=== PATIENT | female | born 1970 | race Caucasian/White ===

== ENCOUNTER → 2020-05-18 14:09 | Outpatient (BNVA) | payer OTHER, SELFPAY | PROVIDERS: Visit Provider Family Medicine | DX: E03.9 Hypothyroidism, unspecified (principal); R23.8 Other skin changes; Z13.6 Encounter for screening for cardiovascular disorders; G47.00 Insomnia, unspecified; M25.561 Pain in right knee; M79.672 Pain in left foot; L71.9 Rosacea, unspecified | CPT/HCPCS: 80053; 80061; 82306; 84443; 85025 ==

== ENCOUNTER 2020-06-09 09:02 | Outpatient (CLI) | payer OTHER, SELFPAY ==
--- NOTE | 2020-06-09 09:08 | XR_ITS ---
WS: [id number] KNEE RIGHT TECHNIQUE: 3 views of the right knee CLINICAL INFORMATION: right medial knee pain COMPARISON: None. FINDINGS: Soft tissue edema. Small suprapatellar effusion. No acute fractures. Normal patella. XR/XR knee RT 3V* [id number] IMPRESSION: Soft tissue edema with small effusion. No acute fractures.
--- NOTE | 2020-06-09 09:08 | XR_ITS ---
WS: [id number] FOOT LEFT TECHNIQUE: 3 views of the left foot CLINICAL INFORMATION: left foot pain - 4th and 5th digits COMPARISON: None. FINDINGS: No evidence of acute fracture or dislocation. Normal tarsal metatarsal alignment. Normal calcaneus. N ormal visualized talar dome. Tiny plantar calcaneal spur. No visualized fractures. IMPRESSION: No visualized acute fractures.
== END 2020-06-09 09:03 | disposition home or self-care (01) ==
PROVIDERS: PCP Family Medicine; Visit Provider Family Medicine
DX: M79.672 Pain in left foot (principal); M25.561 Pain in right knee; R60.0 Localized edema; M25.461 Effusion, right knee
CPT/HCPCS: 73562; 73630

== ENCOUNTER 2020-07-28 12:40 | Outpatient (RCR) | payer OTHER, SELFPAY | END 2020-08-25 23:59 | disposition home or self-care (01) | LOC: SPT 12:40 | PROVIDERS: PCP Family Medicine; Referring Provider Family Medicine; Visit Provider Family Medicine | DX: M25.561 Pain in right knee (principal) | CPT/HCPCS: 97161 ==

== ENCOUNTER → 2020-08-19 13:03 | Outpatient (BNVA) | payer OTHER, SELFPAY | PROVIDERS: PCP Family Medicine; Visit Provider Family Medicine | DX: E55.9 Vitamin D deficiency, unspecified (principal); Z86.39 Personal history of other endocrine, nutritional and metabolic disease | CPT/HCPCS: 82306 ==

== ENCOUNTER 2020-08-24 09:27 | Outpatient (CLI) | payer OTHER, SELFPAY ==
--- NOTE | 2020-08-24 09:30 | MM_ITS ---
WS: [id number] SCREENING DIGITAL MAMMOGRAM WITH CAD HISTORY: screening mammogram COMPARISON: None available. Bilateral CC and MLO views submitted. Computer aided detection analyzed. Breast composition: There are scattered areas of fibroglandular density. No suspicious masses, microc alcifications or architectural distortion. MM/[place] [id number] IMPRESSION: BI-RADS: 1-Negative FOLLOW UP: 1 Year Follow-up
== END 2020-08-24 09:28 | disposition home or self-care (01) ==
LOC: RADSHAW 09:30
PROVIDERS: PCP Family Medicine; Visit Provider Family Medicine
DX: Z12.31 Encounter for screening mammogram for malignant neoplasm of breast (principal)
CPT/HCPCS: 77067

== ENCOUNTER → 2021-02-15 13:55 | Outpatient (BNVA) | payer OTHER, MEDICAID, SELFPAY | PROVIDERS: PCP Family Medicine; Visit Provider Family Medicine | DX: E03.9 Hypothyroidism, unspecified (principal); M25.561 Pain in right knee; Z86.39 Personal history of other endocrine, nutritional and metabolic disease | CPT/HCPCS: 80048; 82306; 84443 ==

== ENCOUNTER → 2021-03-01 09:40 | Outpatient (BNVA) | payer OTHER, MEDICAID, SELFPAY | PROVIDERS: PCP Family Medicine; Visit Provider Nurse Practitioner Family | DX: Z20.822 Contact with and (suspected) exposure to COVID-19 (principal) | CPT/HCPCS: 87635 ==

== ENCOUNTER 2021-06-15 06:59 | Day surgery (SDC) | payer MEDICAID, SELFPAY ==
[2021-06-13 14:08] VITALS: BMI 46.7
--- NOTE | 2021-06-15 07:53 | W.PM.OPSFHP ---
Same Day Surgery H&P Indication for Procedure/HPI DATE OF PROCEDURE: June 15, 2021 CHIEF COMPLAINT/INDICATIONFOR SURGICAL PROCEDURE: screening PREOP DIAGNOSIS: diagnostic PLANNED PROCEDURE: Operation Date: 06/15/21 08:30 Proposed Procedures p Colonoscopy 72355/k63.5(Not Applicable) - Jordon Mayberry MD Medications/Allergies* Home Medications Medication Instructions Recorded Confirmed Type cetirizine 10 mg tablet (Aller-Andre) 10 mg PO DAILY 05/18/20 06/15/21 History fish oil with evening primrose 2 cap PO DAILY 05/18/20 06/15/21 History loratadine 10 mg tablet (Wal-itin) 10 mg PO DAILY 05/18/20 06/15/21 History mupirocin 2 % topical ointment 1 applic TOPICAL BID PRN 06/13/21 06/15/21 History Allergies/Adverse Reactions Allergy/AdvReac Type Severity Reaction Status Date / Time adhesive tape Allergy ALGY-Rash Verified 06/15/21 07:37 Pertinent History/Comorbid Conditions* Medical History (Updated 04/29/21 @ 11:13 by Jordon Mayberry MD) Colon polyps Hypothyroid Insomnia Migraine headache Urinary incontinence Surgical History (Updated 04/29/21 @ 11:13 by Jordon Mayberry MD) H/O section H/O: hysterectomy History of cholecystectomy History of colonoscopy History of D&C Family History (Updated 05/18/20 @ 13:31 by Bernadette Andrade LPN) Substance abuse Diabetes Psychiatric illness Cancer Stroke Social History Smoking and tobacco status: former smoker Alcohol intake: current Alcohol intake frequency: holidays/special occasions only Pertinent Exam Findings alert, oriented x 3 and regular rate & rhythm Recommendations Surgery/Procedure today Coding Level of Care Code Acute Senior Software Qa Analyst for Nicole Maldonado
[2021-06-15 08:04] VITALS: BP 128/99; PULSE 102; RESP 18; TEMP 36.1; O2SAT 97
--- NOTE | 2021-06-15 08:08 | ANES.PREANE2 ---
Pre-Anesthetic Assessment Height/Weight: Height 1.65 m Weight 127.459 kg Preop Diagnosis: diagnostic Operation Date: 06/15/21 08:30 Proposed Procedures p Colonoscopy 62777/k63.5(Not Applicable) - Jordon Mayberry MD Was Beta Lornea taken within 24 hours: N/A Was Clonidine taken within 24 hours: N/A Social Alcohol and No tobacco Exam alert, oriented x 3, clear to auscultation bilaterally and regular rate & rhythm Airway Submandibular: within normal limits Cervical ROM: within normal limits Mallampati: Class II Dentition: full History/ROS No significant history except as noted and No significant complaints Pulmonary None reported CV/HEM None reported None reported Hepatic None reported GI None reported Metabolic Morbid Obesity [facility] [place], [place] None reported Neuropsych None reported Anesthetic Plan ASA status: 2 Anesthesia: Anesthesia Evaluation and MAC Risk of > 500 ml blood loss (7ml/kg in children): No Medications/Allergies Home Medications Medication Instructions Recorded Confirmed Last Taken Type cetirizine 10 mg tablet (Aller-Andre) 10 mg PO DAILY 05/18/20 06/15/21 06/14/21 History fish oil with evening primrose 2 cap PO DAILY 05/18/20 06/15/21 06/14/21 History loratadine 10 mg tablet (Wal-itin) 10 mg PO DAILY 05/18/20 06/15/21 06/14/21 History meloxicam 15 mg tablet (Mobic) 15 mg PO DAILY #90 tab 02/15/21 06/15/21 06/14/21 Rx solifenacin 10 mg tablet (Vesicare) 10 mg PO DAILY #90 tab 02/15/21 06/15/21 06/14/21 Rx levothyroxine 25 mcg tablet 25 mcg PO DAILY 90 Days #90 tab 04/07/21 06/15/21 06/15/21 Rx topiramate 100 mg tablet 100 mg PO BID 90 Days #180 tab 04/07/21 06/15/21 06/15/21 Rx cholecalciferol (vitamin D3) 125 125 mcg PO DAILY 90 Days #90 cap 05/09/21 06/15/21 06/14/21 Rx mcg (5,000 unit) capsule mupirocin 2 % topical ointment 1 applic TOPICAL BID PRN 06/13/21 06/15/21 06/14/21 History Allergies Allergy/AdvReac Type Severity Reaction Status Date / Time adhesive tape Allergy ALGY-Rash Verified 06/15/21 07:37 [facility] Anesthesia Medical History Colon polyps Hypothyroid Insomnia Migraine headache Urinary incontinence Surgical History H/O section H/O: hysterectomy History of cholecystectomy History of colonoscopy History of D&C Family History Other Cancer Diabetes Psychiatric illness Stroke Substance abuse Social History Smoking and tobacco status: former smoker Alcohol intake: current Alcohol intake frequency: holidays/special occasions only Data Anesthesia Cardiac Studies: No Data to Display
[2021-06-15] MEDS: sodium chloride 0.9% 1,000 ML 30 ML IV (08:10)
[2021-06-15 09:03] VITALS: BP 125/92; PULSE 83; RESP 16; TEMP 36.1; O2SAT 96
[2021-06-15 09:25] VITALS: BP 131/83; PULSE 78; RESP 16; O2SAT 99
--- NOTE | 2021-06-15 17:38 | ANE.PACU2 ---
Inpatient post-anesthesia follow up: Airway intact: Yes Vital signs: Temperature 97 F Pulse Rate 78 Respiratory Rate 16 Blood Pressure 131/83 Pulse Oximetry 99 Oxygen Delivery Me thod Room Air Oxygen Flow Rate Fraction of Inspir ed Oxygen Hydration adequate: Yes Nausea and vomiting: No Pain level: 1 Mental status: Baseline
== END 2021-06-15 09:40 | disposition home or self-care (01) ==
PROVIDERS: PCP Family Medicine; Visit Provider Surgery
PROC: 0DJD8ZZ Inspection of Lower Intestinal Tract, Via Natural or Artificial Opening Endoscopic (ICD-10-PCS; CPT 45378; principal; 2021-06-15 08:30)
DX: Z12.11 Encounter for screening for malignant neoplasm of colon (principal); Z86.010 Personal history of colon polyps; E03.9 Hypothyroidism, unspecified; Z87.891 Personal history of nicotine dependence; E66.01 Morbid (severe) obesity due to excess calories; Z68.42 Body mass index [BMI] 45.0-49.9, adult
CPT/HCPCS: 45378; J2370; J2704; J7030

== ENCOUNTER → 2021-08-31 14:02 | Outpatient (BNVA) | payer MEDICAID, SELFPAY | PROVIDERS: PCP Family Medicine; Visit Provider Family Medicine | DX: R53.83 Other fatigue (principal); E03.9 Hypothyroidism, unspecified | CPT/HCPCS: 80053; 84443; 85025 ==

== ENCOUNTER 2021-11-25 10:19 | Outpatient (CLI) | payer MEDICAID, SELFPAY ==
--- NOTE | 2021-11-25 10:34 | MM_ITS ---
WS: [email or web address] VIEWS: MLO and CC views both breasts. 3D digital tomosynthesis is also included in this exam. Comparison made with prior exam of 07/12/2015, 07/31/2016, 09/03/2017, 08/24/2020.. Findings: Questionable partially obscured 1 cm density noted in the central right breast on the MLO view only. No suspicious calcification. There are no new findings in the left breast. Scattered fibroglandular densities. Compression spot views and ultrasound recommended for further evaluation of the right [address]. Also a 90 degree lateral view of the right breast would be recommended. MM/[place] [id number] Impression: BI-RADS: 0-Incomplete: Need additional imaging evaluation FOLLOW-UP: See Report This mammogram was also analyzed by the Computer Aided Detection System R2 Imag e Attending Urologist.
== END 2021-11-25 10:20 | disposition home or self-care (01) ==
LOC: RAD 10:20
PROVIDERS: PCP Family Medicine; Visit Provider Family Medicine
DX: Z12.31 Encounter for screening mammogram for malignant neoplasm of breast (principal)
CPT/HCPCS: 77063; 77067

== ENCOUNTER 2021-12-14 10:24 | Outpatient (CLI) | payer MEDICAID, SELFPAY ==
--- NOTE | 2021-12-14 10:41 | MM_ITS ---
WS: [email or web address] Left breast diagnostic 3D tomosynthesis digital mammogram, 12/14/2021 Clinical Data: MASS Comparison: 11/25/2021, 08/24/2020 09/03/2017, 07/31/2016, 07/12/2015. Findings: The questionable density in the lower part of the left breast was not seen on the compression MLO vie w or the ML view. There are no spiculated masses or clustered calcifications. MM/[place] [id number] Impression: 1. Negative additional views of left breast. 2. Recommend return to annual screening mammograms. BIRADS: 1-Negative FOLLOW UP: 1 Year Follow-up The CAD liner checker was used.
== END 2021-12-14 10:25 | disposition home or self-care (01) ==
LOC: RAD 10:25
PROVIDERS: PCP Family Medicine; Visit Provider Family Medicine
DX: N63.10 Unspecified lump in the right breast, unspecified quadrant (principal)
CPT/HCPCS: 77061

== ENCOUNTER 2021-12-16 13:33 | Outpatient (CLI) | payer MEDICAID, SELFPAY ==
--- NOTE | 2021-12-16 13:42 | XR_ITS ---
WS: [email or web address] Chest 2 views, 12/16/2021 Clinical Data: chronic cough Comparison: None. Findings: No nodules, masses or effusions are seen. The heart is normal. The pulmonary vascularity is not increased. No pneumonia or pneumothorax is seen. XR/XR chest 2V* [id number] Impression: Negative chest.
== END 2021-12-16 13:34 | disposition home or self-care (01) ==
LOC: RAD 13:36
PROVIDERS: PCP Family Medicine; Visit Provider Family Medicine
DX: R05.3 Chronic cough (principal)
CPT/HCPCS: 71046

== ENCOUNTER → 2022-04-21 11:01 | Outpatient (BNVA) | payer MEDICAID, SELFPAY | PROVIDERS: PCP Family Medicine; Visit Provider Family Medicine | DX: R19.7 Diarrhea, unspecified (principal) | CPT/HCPCS: 86003 ==

== ENCOUNTER 2022-05-01 12:12 | Outpatient (CLI) | payer MEDICAID, SELFPAY ==
--- NOTE | 2022-05-01 12:24 | XRR_ITS ---
PROCEDURE INFORMATION: Exam: XR Left Elbow Exam date and time: 05/01/2022 12:24 PM Age: 52 years old Clinical indication: Patient HX: Left elbow pain. Blood was drawn out of left hand a few months ago and PT states that she believes the hydrographer hit a nerve because it shot pain up her arm and she still has the pain in her elbow today TECHNIQUE: Imaging protocol: Radiologic exam of the left elbow. Views: 1 or 2 views. COMPARISON: No relevant prior studies available. FINDINGS: Bones/joints: Normal alignment. Joint surfaces preserved. No fracture. Soft tissues: No soft tissue swelling or joint effusion evident. XR/XR elbow LT 2V [id number] IMPRESSION: Normal examination of the left elbow.
== END 2022-05-01 12:13 | disposition home or self-care (01) ==
LOC: RAD 12:15
PROVIDERS: PCP Family Medicine; Visit Provider Family Medicine
DX: M25.522 Pain in left elbow (principal)
CPT/HCPCS: 73070

== ENCOUNTER → 2022-11-17 11:30 | Outpatient (BNVA) | payer MEDICAID, SELFPAY | PROVIDERS: PCP Family Medicine; Visit Provider Family Medicine | DX: R30.0 Dysuria (principal); R10.13 Epigastric pain; F33.1 Major depressive disorder, recurrent, moderate; E03.9 Hypothyroidism, unspecified; Z13.6 Encounter for screening for cardiovascular disorders | CPT/HCPCS: 80053; 80061; 81000; 82607; 84443; 85025; 87086 ==

== ENCOUNTER 2022-12-18 10:23 | Outpatient (CLI) | payer MEDICAID, SELFPAY ==
--- NOTE | 2022-12-18 11:18 | MM_ITS ---
WS: [email or web address] VIEWS: MLO and CC views both breasts. 3D digital tomosynthesis is also included in this exam. Comparison made with prior exam of 07/12/2015, 07/31/2016, 09/03/2017, 08/24/2020, 12/14/2021.. Findings: There was no sign of mass, architectural distortion or suspicious calcification in either breast. Sta ble appearing parenchymal densities in both breasts. Scattered areas of fibroglandular density. Impression: MM/[place] [id number] BI-RADS: 2-Benign finding FOLLOW-UP: 1 Year Follow-up This mammogram was also analyzed by the Computer Aided Detection System R2 Imag e Pilot Plant Operator.
== END 2022-12-18 10:24 | disposition home or self-care (01) ==
LOC: RAD 10:24
PROVIDERS: PCP Family Medicine; Visit Provider Family Medicine
DX: Z12.31 Encounter for screening mammogram for malignant neoplasm of breast (principal)
CPT/HCPCS: 77063; 77067

== ENCOUNTER → 2023-06-25 16:35 | Outpatient (BNVA) | payer MEDICAID, SELFPAY | PROVIDERS: PCP Family Medicine; Visit Provider Family Medicine | DX: E78.5 Hyperlipidemia, unspecified (principal); E03.9 Hypothyroidism, unspecified; F33.1 Major depressive disorder, recurrent, moderate; M25.561 Pain in right knee; N39.46 Mixed incontinence; G43.001 Migraine without aura, not intractable, with status migrainosus | CPT/HCPCS: 80053; 80061; 84443; 86376; 86800 ==

== ENCOUNTER 2023-07-03 06:47 | Outpatient (CLI) | payer MEDICAID, SELFPAY ==
--- NOTE | 2023-07-03 06:45 | US_ITS ---
WS: [id number] THYROID ULTRASOUND HISTORY: thyromegaly COMPARISON: None available. Right lobe: 1.3 cm x 1.5 cm x 3.2 cm (w x ap x l). Volume: 3.1 cm3. Normal size thyroid lobe. Hypoechoic nodule in the mid to superior gland measures 0.7 x 0.5 x 0.7 cm. Left lobe: 1.5 cm x 1.2 cm x 3.5 cm (w x ap x l). Volume: 2.9 cm3. Normal size and echotexture. No significant or dominant nodules are present. Isthmus: 0.3 cm. US/US thyroid [id number] IMPRESSION: Based on the TI-RADS criteria no additional imaging necessary.
== END 2023-07-03 06:48 | disposition home or self-care (01) ==
LOC: RAD 06:47
PROVIDERS: PCP Family Medicine; Visit Provider Family Medicine
DX: E03.9 Hypothyroidism, unspecified (principal)
CPT/HCPCS: 76536

== ENCOUNTER 2023-10-30 20:00 | Outpatient (CLI) | payer MEDICAID, SELFPAY | END 2023-10-30 20:01 | disposition home or self-care (01) | LOC: SLEEP 23:32 | PROVIDERS: PCP Family Medicine Adult Medicine; Visit Provider Family Medicine | DX: G47.33 Obstructive sleep apnea (adult) (pediatric) (principal); G47.36 Sleep related hypoventilation in conditions classified elsewhere; E78.5 Hyperlipidemia, unspecified; E03.9 Hypothyroidism, unspecified; G47.10 Hypersomnia, unspecified | CPT/HCPCS: 80053; 80061; 84443; 95810 ==

== ENCOUNTER → 2023-11-20 11:07 | Outpatient (BNVA) | payer MEDICAID, SELFPAY | PROVIDERS: PCP Family Medicine Adult Medicine | DX: Z97.8 Presence of other specified devices (principal); M47.9 Spondylosis, unspecified; R05.9 Cough, unspecified | CPT/HCPCS: 71046 ==

== ENCOUNTER 2023-12-31 09:30 | Outpatient (CLI) | payer MEDICAID, SELFPAY ==
--- NOTE | 2023-12-31 09:30 | MR_ITS ---
WS: [id number] MRI BRAIN WITHOUT CONTRAST HISTORY: G43.001 - Migraine without aura, not intractable, dizziness COMPARISON: None available. TECHNIQUE: Diffusion imaging, multiplanar T1, T2 and FLAIR imaging obtained. No evidence for acute infarct or hemorrhage. Yo-white matter differentiation is normal. Minimal volume loss in the frontal lobes. No prior infarct. Hippocampal formations are normal. Ventricles and extra-axial spaces are normal. No intra displacement the cerebellar tonsils. Empty sella turcica. Dural venous sinuses and [place] demonstrate no abnormality on this unenhanced studies. Paranasal sinuses: Clear. Mastoid air cells: Normal. Calvarium and scalp: Intact. MR/MR head wo con* [id number] IMPRESSION: 1. No acute infarct or hemorrhage. 2. Very minimal bifrontal lobe atrophy. 3. Normal hippocampal formations. 4. No prior infarct.
== END 2023-12-31 09:33 | disposition home or self-care (01) ==
PROVIDERS: Visit Provider Specialist
DX: G43.001 Migraine without aura, not intractable, with status migrainosus (principal); G37.9 Demyelinating disease of central nervous system, unspecified; G47.10 Hypersomnia, unspecified
CPT/HCPCS: 70551

== ENCOUNTER 2024-01-04 11:11 | Outpatient (CLI) | payer MEDICAID, SELFPAY ==
--- NOTE | 2024-01-04 11:13 | MM_ITS ---
WS: [id number] SCREENING DIGITAL BREAST TOMOSYNTHESIS MAMMOGRAM WITH CAD HISTORY: SCREENING COMPARISON: 12/18/2022 Bilateral CC and MLO with tomosynthesis and synthetic mammography submitted. Computer aided detection analyzed. Breast composition: There are scattered areas of fibroglandular density. New amorphous calcifications are noted in the upper outer quadrant of the LEFT breast. These are linear grouped calcifications an d may extend along a ductal distribution. These calcifications were not present on 12/18/2022. RIGHT breast is negative. MM/MM scr BI tomosynthesis [id number] IMPRESSION: BI-RADS: 0 - Incomplete: Need additional imaging evaluation. FOLLOW UP: Need Additional Imaging LEFT BREAST: Magnification views of suspicious calcification CC and MLO. Piotr Walker
== END 2024-01-04 11:12 | disposition home or self-care (01) ==
LOC: RAD 11:11
DX: Z12.31 Encounter for screening mammogram for malignant neoplasm of breast (principal)
CPT/HCPCS: 77063; 77067

== ENCOUNTER → 2024-04-10 11:17 | Outpatient (BNVA) | payer OTHER, SELFPAY | DX: E03.9 Hypothyroidism, unspecified (principal); E78.5 Hyperlipidemia, unspecified | CPT/HCPCS: 80053; 80061; 84439; 84443 ==

== ENCOUNTER 2024-04-22 08:11 | Outpatient (CLI) | payer OTHER, SELFPAY ==
--- NOTE | 2024-04-22 08:15 | US_ITS ---
WS: [id number] ADDITIONAL VIEWS LEFT MAMMOGRAM WITH DIGITAL BREAST TOMOSYNTHESIS. LEFT breast ultrasound, limited HISTORY: abnormal mammogram of left breast COMPARISON: 01/04/2024, 12/18/2022 Magnification views LEFT breast in CC, MLO projections and true ML submitted with digital breast tomosynthesis and SM. Breast composition: There are scattered areas of fibroglandular density. Extensive calcifications noted in the LEFT upper outer quadrant centered at a middle depth but extending anteriorly and posteriorly. Calcification are fine and pleomorphic and also linear and branching. Calcifications are in a linear distribution which may be ductal etiology. There is also slight increased soft tissue component associated with the calcifications. Ultrasound will be obtained also. LEFT breast ultrasound, limited. Ultrasound is performed along the upper outer quadrant of the LEFT breast. There is an area of shadowing. This does correspond to the mammographic abnormality. Not sufficient abnormality noted by ultrasound to perform the biopsy. US/US breast LT limited* [id number] IMPRESSION: BI-RADS: 5 - Highly suggestive of Malignancy. FOLLOW UP: Biopsy Recommended Stereotactic biopsy recommended LEFT breast calcifications upper outer quadrant . Notified Allyssa Sanabria NP at 04/22/2024 10:00 AM. Unable to speak directly wale Sanabria. Recorded message with the answering service. Stressed the imp ortance of providing Allyssa Sanabria with this information.
--- NOTE | 2024-04-22 10:00 | MM_ITS ---
WS: [email or web address] ADDITIONAL VIEWS LEFT MAMMOGRAM WITH DIGITAL BREAST TOMOSYNTHESIS. LEFT breast ultrasound, limited HISTORY: abnormal mammogram of left breast COMPARISON: 01/04/2024, 12/18/2022 Magnification views LEFT breast in CC, MLO projections and true ML submitted with digital breast tomosynthesis and SM. Breast composition: There are scattered areas of fibroglandular density. Extensive calcifications noted in the LEFT upper outer quadrant centered at a middle depth but extending anteriorly and posteriorly. Calcification are fine and pleomorphic and also linear and branching. Calcifications are in a linear distribution which may be ductal etiology. There is also slight increased soft tissue component associated with the calcifications. Ultrasound will be obtained also. LEFT breast ultrasound, limited. Ultrasound is performed along the upper outer quadrant of the LEFT breast. There is an area of shadowing. This does correspond to the mammographic abnormality. Not sufficient abnormality noted by ultrasound to perform the biopsy. MM/MM diag BI tomosynthesis [id number] IMPRESSION: BI-RADS: 5 - Highly suggestive of Malignancy. FOLLOW UP: Biopsy Recommended Stereotactic biopsy recommended LEFT breast calcifications upper outer quadrant . Notified Allyssa Sanabria NP at 04/22/2024 10:00 AM. Unable to speak directly wale Sanabria. Recorded message with the answering service. Stressed the imp ortance of providing Allyssa Sanabria with this information.
== END 2024-04-22 08:12 | disposition home or self-care (01) ==
DX: R92.8 Other abnormal and inconclusive findings on diagnostic imaging of breast (principal); R92.322 Mammographic fibroglandular density, left breast; R92.1 Mammographic calcification found on diagnostic imaging of breast; N63.21 Unspecified lump in the left breast, upper outer quadrant
CPT/HCPCS: 76642; 77062; G0279

== ENCOUNTER 2024-04-30 10:42 | Outpatient (CLI) | payer OTHER, MEDICAID, SELFPAY ==
--- NOTE | 2024-04-30 11:26 | MM_ITS ---
WS: [email or web address] ULTRASOUND-GUIDED LEFT BREAST BIOPSY CLINICAL INFORMATION: breast mass FINDINGS: The procedure including risks, benefits, and complications were discussed with the patient who agreed to proceed. Using sterile technique patient was prepped and draped in the usual sterile fashion. After 1% lidocaine utilizing real-time ultrasound guidance 4 14-gauge cores were obtained of the LEFT breast lesion at the 3 o'clock position. Subsequently a titanium clip was placed in the biopsy cavity. Patient with venous bleeding and subcutaneous breast hematoma post procedure Pathology demonstrates invasive mammary carcinoma with ductal and lobular features nuclear grade 2. Microcalcifications visualized. MM/[place] [id number] IMPRESSION: 1. Ultrasound-guided LEFT breast biopsy. 2. The pathology demonstrates invasive mammary carcinoma with ductal and lobul ar features nuclear grade 2. Microcalcifications visualized. 3. Breast cancer prognostic profile pending. 4. Postbiopsy mammogram images demonstrate biopsy clip in the area of previous ly described calcifications. Significant regional calcifications in this area. Recommend mammographic correlation with breast surgery DENSITY: There are scattered areas of fibroglandular density. BI-RADS: 6 - Known Biopsy - Proven Malignancy. FOLLOW UP: Surgical Biopsy Recommended Recommend breast surgery consultation
--- NOTE | 2024-04-30 11:45 | US_ITS ---
WS: [id number] ULTRASOUND-GUIDED LEFT BREAST BIOPSY CLINICAL INFORMATION: breast mass FINDINGS: The procedure including risks, benefits, and complications were discussed with the patient who agreed to proceed. Using sterile technique patient was prepped and draped in the usual sterile fashion. After 1% lidocaine utilizing real-time ultrasound guidance 4 14-gauge cores were obtained of the LEFT breast lesion at the 3 o'clock position. Subsequently a titanium clip was placed in the biopsy cavity. Patient with venous bleeding and subcutaneous breast hematoma post procedure Pathology demonstrates invasive mammary carcinoma with ductal and lobular features nuclear grade 2. Microcalcifications visualized. US/[place] [id number] IMPRESSION: 1. Ultrasound-guided LEFT breast biopsy. 2. The pathology demonstrates invasive mammary carcinoma with ductal and lobul ar features nuclear grade 2. Microcalcifications visualized. 3. Breast cancer prognostic profile pending. 4. Postbiopsy mammogram images demonstrate biopsy clip in the area of previous ly described calcifications. Significant regional calcifications in this area. Recommend mammographic correlation with breast surgery DENSITY: There are scattered areas of fibroglandular density. BI-RADS: 6 - Known Biopsy - Proven Malignancy. FOLLOW UP: Surgical Biopsy Recommended Recommend breast surgery consultation
[2024-05-06 09:38] LABS: Breast Profile ER,PR,HER2,Ki-6 See Report
== END 2024-04-30 10:43 | disposition home or self-care (01) ==
PROVIDERS: Visit Provider Family Medicine
DX: C50.812 Malignant neoplasm of overlapping sites of left female breast (principal); R92.1 Mammographic calcification found on diagnostic imaging of breast; R92.322 Mammographic fibroglandular density, left breast
CPT/HCPCS: 19083; 77065; 88305; 88361; 88374

== ENCOUNTER 2024-05-20 09:09 | Outpatient (CLI) | payer OTHER, SELFPAY | END 2024-05-20 09:10 | disposition home or self-care (01) | PROVIDERS: Visit Provider Family Medicine | DX: R05.3 Chronic cough (principal) | CPT/HCPCS: 94010; 94726; 94729 ==

== ENCOUNTER 2024-05-22 13:59 | Oncology outpatient (recurring) (ONCR) | payer OTHER, SELFPAY ==
[2024-05-08 09:42] LABS: Basophils # 0.1 10^3/uL (0.0-0.1); Basophils % 0.9 %; Eosinophils # 0.1 10^3/uL (0.0-0.8); Eosinophils % 1.9 %; Hematocrit 40.7 % (36-47); Lymphocytes # 1.7 10^3/uL (0.8-4.8); Lymphocytes % 24.5 %; Mean Corpuscular HGB Conc 32.9 g/dL (30-55); Mean Corpuscular Hemoglobin 34.1 pg (27-33); Mean Corpuscular Volume 103.6 fl (85-98); Mean Platelet Volume 8.7 fL (7.4-10.4); Monocytes # 0.3 10^3/uL (0.2-0.9); Monocytes % 4.7 %; Neutrophils # 4.71 10^3/uL (1.8-7.7); Neutrophils % 67.7 %; Nucleated Red Blood Cells % 0 %; Platelet Count 254 10^3/cmm (157-399); Red Blood Count 3.93 10^6/uL (3.85-5.65); Red Cell Distribution Width 15.1 % (12.1-15.1); White Blood Count 6.95 10^3/uL (3.29-11.43)
[2024-05-08 09:52] LABS: INR 0.88 (0.8-1.2)
[2024-05-08 09:53] LABS: Partial Thromboplastin Time 27.2 SECONDS (23.9-36.7)
[2024-05-08 10:12] LABS: Erythrocyte Sedimentation Rate 3 mm/hr (0-15)
[2024-05-08 10:18] LABS: Alanine Aminotransferase 11 U/L (0-33); Albumin Level 4.4 g/dL (3.5-5.2); Alkaline Phosphatase 97 U/L (35-105); Anion Gap 10.9 (5-19); Aspartate Amino Transferase 17 U/L (0-32); Blood Urea Nitrogen 12 mg/dL (6-20); CA 15-3 13.8 U/mL (0-25); Calcium 9.6 mg/dL (8.5-10.5); Carbon Dioxide 26 mmol/L (22-29); Chloride 102 mmol/L (98-107); Estradiol 5.1 pg/mL; Ferritin 167 ng/mL (15-150); Follicle Stimulating Hormone 68.8 mIU/mL; Globulin 2.7 g/dL (1.3-4.6); Glomerular Filtration Rate 65.5 mL/min (90-130); Glucose 102 mg/dL (65-115); Iron 62 ug/dL (37-145); Lactate Dehydrogenase 169 U/L (135-214); Luteinizing Hormone 36.2 mIU/mL (0.5-41.7); Osmolality Calculated 280 mOsm/kg (285-295); Percent Saturation 20.1 % (20-50); Potassium 3.9 mmol/L (3.5-5.1); Sodium 135 mmol/L (136-145); Total Bilirubin 0.6 mg/dL (0.15-1.2); Total Iron Binding Capacity 308 mcg/dl; Total Protein 7.1 g/dL (6.6-8.7); Unsaturated Iron Binding 246 ug/dL (112-347); Vitamin B12 208 pg/mL (232-1245)
[2024-05-08 10:24] LABS: Folate Level 5.2 ng/mL (4.8-37.3)
[2024-05-12 16:00] LABS: Erythropoietin 27.4 mIU/mL (2.6-18.5)
[2024-05-22 15:34] LABS: Basophils # 0.1 10^3/uL (0.0-0.1); Basophils % 0.8 %; Eosinophils # 0.2 10^3/uL (0.0-0.8); Eosinophils % 2.3 %; Hematocrit 40.7 % (36-47); Lymphocytes # 2.1 10^3/uL (0.8-4.8); Lymphocytes % 28.4 %; Mean Corpuscular HGB Conc 32.4 g/dL (30-55); Mean Corpuscular Hemoglobin 33.4 pg (27-33); Monocytes # 0.3 10^3/uL (0.2-0.9); Monocytes % 4.5 %; Neutrophils # 4.73 10^3/uL (1.8-7.7); Neutrophils % 63.9 %; Nucleated Red Blood Cells % 0 %; Platelet Count 252 10^3/cmm (157-399); Red Blood Count 3.95 10^6/uL (3.85-5.65); Red Cell Distribution Width 14.1 % (12.1-15.1)
[2024-05-22 15:52] LABS: Lactate Dehydrogenase 154 U/L (135-214)
[2024-05-22 16:04] LABS: Homocysteine 53.84 umol/l (0-15)
[2024-05-22 16:08] LABS: Vitamin B12 199 pg/mL (232-1245)
[2024-05-27 16:04] LABS: Methylmalonic Acid 415 nmol/L (55-335)
== END 2024-05-26 23:59 | disposition home or self-care (01) ==
PROVIDERS: Visit Provider Internal Medicine
DX: C50.412 Malignant neoplasm of upper-outer quadrant of left female breast (principal); Z17.0 Estrogen receptor positive status [ER+]; D64.9 Anemia, unspecified
CPT/HCPCS: 36415; 80053; 82607; 82668; 82670; 82728; 82746; 83001; 83002; 83010; 83090; 83540; 83550; 83615; 83921; 85025; 85045; 85610; 85651; 85730; 86300

== ENCOUNTER 2024-06-05 13:15 | Oncology outpatient (recurring) (ONCR) | payer OTHER, SELFPAY ==
--- NOTE | 2024-05-27 10:00 | USCV_ITS ---
Dian Leida Age: 54 Gender: F : 1970 Exam Date: 05/27/2024 10:11 Ordering Phys: Terence Horner MD Technologist: Exam Location: [facility] – [place] Indication: high risk meds BP: 120 / 75 HR: 90 Rhythm: Sinus Technical Quality: Suboptimal MEASUREMENTS (Male / Female) Normal Values 2D ECHO LV Diastolic Diameter PLAX 3.8 cm 4.2 - 5.9 / 3.9 - 5.3 cm IVS Diastolic Thickness 1.2 cm 0.6 - 1.0 / 0.6 - 0.9 cm IVS Systolic Thickness 1.5 cm LVPW Diastolic Thickness 1.1 cm 0.6 - 1.0 / 0.6 - 0.9 cm LVPW Systolic Thickness 1.5 cm LVOT Diameter 2.0 cm LV Ejection Fraction 2D Teich 64.7 % LV Ejection Fraction MOD 4C 66.5 % LV Ejection Fraction MOD 2C 63.7 % LV Ejection Fraction 2C AL 64.8 % LA Diameter 3.4 cm RA Systolic Volume 4C AL 36.4 ml RA Systolic Volume 4C MOD 37.4 ml Aorta at Sinotubular Diameter 2.7 cm IVC Diameter 2.2 cm M-MODE LA Ao Ratio MM 1.1 AV Cusp Separation MM 2.1 cm DOPPLER AV Peak Velocity 120.0 cm/s LVOT Peak Velocity 101.0 cm/s AV Area Cont Eq vti 3.2 cm squared AV Area Cont Eq pk 2.8 cm squared MV Area PHT 3.0 cm squared TV Peak Velocity 128.5 cm/s TR Peak Velocity 133.0 cm/s TR Peak Gradient 7.1 mmHg TV Peak E Velocity 88.0 cm/s PV Peak Velocity 107.0 cm/s FINDINGS Left Ventricle Normal left ventricular size, systolic function and wall thickness, with no regional wall motion abnormalities. Left ventricular ejection fraction is estimated at 60 %. Grade I/IV diastolic dysfunction (abnormal relaxation filling pattern), normal to mildly elevated filling pressures. Right Ventricle The right ventricle is normal in size and function. Right Atrium The right atrium is normal in size. Left Atrium The left atrium is normal in size. Mitral Valve Structurally normal mitral valve without significant stenosis or prolapse. There is no mitral regurgitation. Aortic Valve Structurally normal aortic valve without significant sclerosis or stenosis. There is no aortic regurgitation. Tricuspid Valve Structurally normal tricuspid valve without significant stenosis or regurgitation. Pulmonary artery systolic pressure is normal. Pulmonic Valve Structurally normal pulmonic valve without significant stenosis. There is no pulmonic regurgitation. Pericardium Normal pericardium without effusion. Aorta Normal ascending aorta dimension. IVC The inferior vena cava appears normal. CONCLUSIONS Normal left ventricular size, systolic function and wall thickness, with no regional wall motion abnormalities. Left ventricular ejection fraction is estimated at 60 %. Grade I/IV diastolic dysfunction (abnormal relaxation filling pattern), normal to mildly elevated filling pressures. There is no pericardial effusion. No significant valve abnormalities. Right atrial pressure is around 5 mm of mercury. Michael Richey MD (Electronically Signed) Final Date: 11 June 2024 15:05 S
[2024-06-05 13:49] LABS: Basophils # 0.1 10^3/uL (0.0-0.1); Eosinophils # 0.2 10^3/uL (0.0-0.8); Eosinophils % 2.1 %; Hematocrit 42.8 % (36-47); Lymphocytes % 24.6 %; Mean Corpuscular HGB Conc 32.9 g/dL (30-55); Mean Corpuscular Hemoglobin 33.3 pg (27-33); Mean Corpuscular Volume 101.2 fl (85-98); Mean Platelet Volume 9.2 fL (7.4-10.4); Monocytes # 0.6 10^3/uL (0.2-0.9); Monocytes % 6.7 %; Neutrophils # 5.41 10^3/uL (1.8-7.7); Neutrophils % 65.5 %; Nucleated Red Blood Cells % 0 %; Platelet Count 253 10^3/cmm (157-399); Red Blood Count 4.23 10^6/uL (3.85-5.65); Red Cell Distribution Width 13.4 % (12.1-15.1); White Blood Count 8.25 10^3/uL (3.29-11.43)
[2024-06-05 14:11] LABS: Alanine Aminotransferase 16 U/L (0-33); Albumin Level 4.4 g/dL (3.5-5.2); Alkaline Phosphatase 98 U/L (35-105); Anion Gap 14.8 (5-19); Aspartate Amino Transferase 22 U/L (0-32); Blood Urea Nitrogen 10 mg/dL (6-20); Calcium 9.3 mg/dL (8.5-10.5); Carbon Dioxide 21 mmol/L (22-29); Chloride 107 mmol/L (98-107); Ferritin 76 ng/mL (15-150); Globulin 2.8 g/dL (1.3-4.6); Glucose 87 mg/dL (65-115); Iron 61 ug/dL (37-145); Lactate Dehydrogenase 154 U/L (135-214); Osmolality Calculated 286 mOsm/kg (285-295); Percent Saturation 18.8 % (20-50); Potassium 3.8 mmol/L (3.5-5.1); Sodium 139 mmol/L (136-145); Total Bilirubin 0.4 mg/dL (0.15-1.2); Total Iron Binding Capacity 324 mcg/dl; Total Protein 7.2 g/dL (6.6-8.7); Unsaturated Iron Binding 263 ug/dL (112-347)
[2024-06-05 14:25] LABS: Vitamin B12 220 pg/mL (232-1245)
[2024-06-09 15:14] LABS: Erythropoietin 24.4 mIU/mL (2.6-18.5)
== END 2024-06-25 23:59 | disposition home or self-care (01) ==
PROVIDERS: Visit Provider Internal Medicine
DX: Z53.9 Procedure and treatment not carried out, unspecified reason; C50.412 Malignant neoplasm of upper-outer quadrant of left female breast; Z17.0 Estrogen receptor positive status [ER+]
CPT/HCPCS: 36415; 80053; 82607; 82668; 82728; 82746; 83010; 83540; 83550; 83615; 85025; 93306

== ENCOUNTER → 2024-07-10 11:24 | Outpatient (BNVA) | payer OTHER, SELFPAY | DX: N39.0 Urinary tract infection, site not specified (principal); N18.2 Chronic kidney disease, stage 2 (mild); J02.9 Acute pharyngitis, unspecified | CPT/HCPCS: 80053; 81000; 83735; 87086 ==

== ENCOUNTER → 2024-09-30 10:34 | Outpatient (BNVA) | payer OTHER, MEDICAID, SELFPAY | DX: R11.2 Nausea with vomiting, unspecified (principal); N89.8 Other specified noninflammatory disorders of vagina; T45.1X5A Adverse effect of antineoplastic and immunosuppressive drugs, initial encounter | CPT/HCPCS: 80053; 81000; 81513; 83735; 87086; 87481; 87491; 87591; 87661 ==

== ENCOUNTER 2025-01-09 15:05 | Outpatient (CLI) | payer MEDICAID, SELFPAY ==
--- NOTE | 2025-01-09 15:09 | USR_ITS ---
PROCEDURE INFORMATION: Exam: US Duplex Lower Extremity Veins, Bilateral Exam date and time: 01/09/2025 3:22 PM Age: 54 years old Clinical indication: Edema, localized; Lower extremity, bilateral; Additional Info: BILATERAL LEG EDEMA/BREAST CANCER TECHNIQUE: Imaging protocol: Real-time duplex ultrasound of the bilateral extremities with 2-D reyes scale, color Doppler flow and spectral waveform analysis including responses to compression and other maneuvers (when performed) with image documentation. Complete exam focused on the lower extremity veins. COMPARISON: No relevant prior studies available. FINDINGS: Right deep veins: Unremarkable. The common femoral, femoral, proximal profunda femoral and popliteal veins are patent without thrombus. Normal Doppler waveforms. Normal compressibility and/or augmentation response. Left deep veins: Unremarkable. The common femoral, femoral, proximal profunda femoral and popliteal veins are patent without thrombus. Normal Doppler waveforms. Normal compressibility and/or augmentation response. Superficial veins: Greater saphenous veins at the saphenofemoral junctions are patent bilaterally without thrombus. Soft tissues: Unremarkable. US/[place] [id number] IMPRESSION: No evidence of deep vein thrombosis.
== END 2025-01-09 15:06 | disposition home or self-care (01) ==
LOC: RAD 15:06
PROVIDERS: Visit Provider Registered Nurse
DX: R60.0 Localized edema (principal); C50.912 Malignant neoplasm of unspecified site of left female breast
CPT/HCPCS: 93970